=== PATIENT | female | born 1935 | race Caucasian/White ===

== ENCOUNTER → 2017-09-02 | Outpatient (REF) | payer MEDICARE, OTHER ==
[~2017-09-02] MED LIST: ATIV1TAB10 PO; BYST5TAB2 PO; CHOLMIS5 XX; COLA100C5 PO; CYMB60CA3 PO; DOCU100T8 PO; DULO30CA PO; Desyrel PO; FERR1TAB8 PO; FERR29TA PO; FLAG500T PO; FLUO20CA8 PO; GABA-282 PO; HYDR-3713 PO; HYDR-643 PO; INVE156I IM; LYRI75CA PO; MACR100C43 PO; METO1TAB32 PO; MOM30SS PO; MSIR PO; MULTCAP11 PO; NEUR100C PO; PERCOCET PO; PRAV40TA2 PO; PROZ10CA7 PO; PROZ20CA11 PO; SENO8.6T10 PO; STOO100C PO; TRAZ25TA PO; TRAZADONE PO; TYLE325T5 PO; XANA0.5T PO
== END ==
LOC: M LAB REF 16:24
PROVIDERS: ATTEND Family Medicine
DX: N39.0 Urinary tract infection, site not specified (principal); C56.9 Malignant neoplasm of unspecified ovary; C78.7 Secondary malignant neoplasm of liver and intrahepatic bile duct; F32.9 Major depressive disorder, single episode, unspecified; F41.9 Anxiety disorder, unspecified

== ENCOUNTER → 2017-10-08 | Outpatient (REF) | payer MEDICARE ==
[~2017-10-08] MED LIST changes: +GABA-283 PO; +NYST50SS SS; +OMEP20CA3 PO; +PATIENT COMMENT; +RANI150C PO; +RANI150T PO; +TRAM50TA2 PO; +TRAZ50TA11 PO
== END ==
LOC: M LAB REF 16:26
PROVIDERS: ATTEND Nurse Practitioner Family
DX: C56.9 Malignant neoplasm of unspecified ovary (principal)

== ENCOUNTER 2017-10-11 15:24 | Inpatient (IN) | payer MEDICARE ==
[2017-10-11] MEDS: NS 1,000 ML IV ×2 (15:48→22:14)
[2017-10-11 16:13] LABS: BASO % 0.4 % (0.0-1.0); EOS # 0.1 10^3/uL (0.0-0.50); EOS % 1.6 % (0.0-3.0); HEMATOCRIT 30.9 % (36.0-47.0); IMMATURE GRANULOCYTE % 0.8 % (0-0); LYMPH # 0.9 10^3/uL (1.5-4.5); LYMPH % 17.7 % (24.0-44.0); MEAN CORPUSCULAR HEMOGLOBIN 31.8 pg (27.0-33.0); MEAN CORPUSCULAR HGB CONC 32.4 g/dl (32.0-36.5); MEAN CORPUSCULAR VOLUME 98.4 fl (80.0-96.0); MONO # 0.6 10^3/uL (0.0-0.8); MONO % 10.7 % (0.0-5.0); NEUTROPHILS # 3.5 10^3/uL (1.8-7.7); NEUTROPHILS % 68.8 % (36.0-66.0); PLATELET COUNT, AUTOMATED 141 10^3/uL (150-450); RED BLOOD COUNT 3.14 10^6/uL (4.00-5.40); RED CELL DISTRIBUTION WIDTH 12.5 % (11.5-14.5); WHITE BLOOD COUNT 5.1 10^3/uL (4.0-10.0)
[2017-10-11 16:28] LABS: AMMONIA < 10 uMOL/L (<32)
[2017-10-11 16:34] LABS: ALBUMIN 3.7 GM/DL (3.2-5.2); ALBUMIN/GLOBULIN RATIO 0.97 (1.00-1.93); ALKALINE PHOSPHATASE 105 U/L (45-117); ALT/SGPT 31 U/L (12-78); ANION GAP 8 MEQ/L (8-16); AST/SGOT 51 U/L (7-37); BILIRUBIN,DIRECT 0.1 MG/DL (0.0-0.2); BILIRUBIN,TOTAL 0.4 MG/DL (0.2-1.0); BLOOD UREA NITROGEN 31 MG/DL (7-18); CALCIUM LEVEL 8.8 MG/DL (8.8-10.2); CARBON DIOXIDE LEVEL 27 MEQ/L (21-32); CHLORIDE LEVEL 104 MEQ/L (98-107); CPK CREATINE PHOSPHOKINASE 62 U/L (26-192); CREATININE FOR GFR 1.24 MG/DL (0.55-1.02); ETHYL ALCOHOL (ETHANOL) < 0.003 % (0.000-0.010); GLOMERULAR FILTRATION RATE 44.4 (>39); GLUCOSE, FASTING 106 MG/DL (83-110); POTASSIUM SERUM 4.3 MEQ/L (3.5-5.1); SODIUM LEVEL 139 MEQ/L (136-145); TOTAL PROTEIN 7.5 GM/DL (6.4-8.2); TROPONIN I < 0.02 NG/ML (< 0.10)
[2017-10-11 16:55] LABS: MB/CK RELATIVE INDEX 1.61 (< OR =4)
[2017-10-11 17:15] LABS: KETONE, URINE AUTO RFX TRACE mg/dL (NEGATIVE); MUCUS, URINE RFX SMALL (NEGATIVE); NITRITE, URINE AUTO RFX NEGATIVE (NEGATIVE); RBC, URINE AUTO RFX 12 /HPF (0-3); SPECIFIC GRAVITY UR AUTO RFX 1.023 (1.002-1.035); SQUAM EPITHELIAL CELL UR AURFX 0 /HPF (0-6)
[2017-10-11 17:16] LABS: LEUKOCYTE ESTERASE UR AUTO RFX 2+ (NEGATIVE); WBC, URINE AUTO RFX 175 /HPF (0-3)
[2017-10-11] MEDS: CEFTRIAXONE SOD 1 GM in APPROPRIATE DILUENT 1 EA IV (18:03)
[2017-10-11] MEDS ORDERED: BISACODYL 5 MG TAB PO (18:30)
[2017-10-11] MEDS ORDERED: ONDANSETRON 4MG/2ML VIAL (J2405) IV (18:30)
[2017-10-11] MEDS: traZODone 50 MG TAB PO (22:15)
[2017-10-11] MEDS: METOPROLOL SUCC *XL* 25MG TAB (TopROL *XL*) PO (22:15)
[2017-10-11] MEDS: SENOKOT S TAB PO (22:16)
[2017-10-11] MEDS: FAMOTIDINE 20 MG TAB PO (22:16)
[2017-10-11] MEDS: LORazepam 0.5 MG TAB PO (22:16)
[2017-10-12 06:23] LABS: BASO % 0.2 % (0.0-1.0); EOS # 0.1 10^3/uL (0.0-0.50); EOS % 1.5 % (0.0-3.0); HEMATOCRIT 24.8 % (36.0-47.0); HEMOGLOBIN 8.2 g/dl (12.0-16.0); IMMATURE GRANULOCYTE % 0.7 % (0-0); LYMPH # 0.9 10^3/uL (1.5-4.5); LYMPH % 22.7 % (24.0-44.0); MEAN CORPUSCULAR HEMOGLOBIN 32.5 pg (27.0-33.0); MEAN CORPUSCULAR HGB CONC 33.1 g/dl (32.0-36.5); MEAN CORPUSCULAR VOLUME 98.4 fl (80.0-96.0); MONO # 0.5 10^3/uL (0.0-0.8); NEUTROPHILS # 2.6 10^3/uL (1.8-7.7); NEUTROPHILS % 62.9 % (36.0-66.0); PLATELET COUNT, AUTOMATED 101 10^3/uL (150-450); RED BLOOD COUNT 2.52 10^6/uL (4.00-5.40); RED CELL DISTRIBUTION WIDTH 12.6 % (11.5-14.5); WHITE BLOOD COUNT 4.1 10^3/uL (4.0-10.0)
[2017-10-12 06:57] LABS: ANION GAP 9 MEQ/L (8-16); BLOOD UREA NITROGEN 25 MG/DL (7-18); CARBON DIOXIDE LEVEL 24 MEQ/L (21-32); CHLORIDE LEVEL 109 MEQ/L (98-107); CREATININE FOR GFR 0.93 MG/DL (0.55-1.02); GLOMERULAR FILTRATION RATE > 60.0 (>39); GLUCOSE, FASTING 95 MG/DL (83-110); POTASSIUM SERUM 4.2 MEQ/L (3.5-5.1); SODIUM LEVEL 142 MEQ/L (136-145)
[2017-10-12] MEDS: NS 1,000 ML IV ×2 (08:20→20:05)
[2017-10-12] MEDS: ENOXAPARIN 30 MG/0.3 ML SYR (J1650) SC (09:00)
[2017-10-12] MEDS: METOPROLOL SUCC *XL* 25MG TAB (TopROL *XL*) PO ×2 (09:00→20:04)
[2017-10-12] MEDS: SENOKOT S TAB PO ×2 (09:00→20:04)
[2017-10-12] MEDS: LORazepam 0.5 MG TAB PO ×2 (09:00→20:04)
[2017-10-12] MEDS: GABAPENTIN 300 MG CAP PO (09:00)
[2017-10-12] MEDS: OMEPRAZOLE 20 MG CAP PO (09:00)
[2017-10-12] MEDS: FAMOTIDINE 20 MG TAB PO ×2 (09:00→20:04)
[2017-10-12] MEDS: DULoxetine 30 MG CAP (CYMBALTA) PO (09:00)
[2017-10-12] MEDS: CEFTRIAXONE SOD 1 GM in APPROPRIATE DILUENT 1 EA IV (18:00)
[2017-10-12] MEDS: traZODone 50 MG TAB PO (20:04)
[2017-10-13 07:08] LABS: BASO % 0.3 % (0.0-1.0); EOS % 1.2 % (0.0-3.0); HEMATOCRIT 25.6 % (36.0-47.0); HEMOGLOBIN 8.4 g/dl (12.0-16.0); IMMATURE GRANULOCYTE % 0.6 % (0-0); LYMPH # 0.6 10^3/uL (1.5-4.5); LYMPH % 17.6 % (24.0-44.0); MEAN CORPUSCULAR HEMOGLOBIN 32.1 pg (27.0-33.0); MEAN CORPUSCULAR HGB CONC 32.8 g/dl (32.0-36.5); MEAN CORPUSCULAR VOLUME 97.7 fl (80.0-96.0); MONO # 0.4 10^3/uL (0.0-0.8); MONO % 12.6 % (0.0-5.0); NEUTROPHILS # 2.3 10^3/uL (1.8-7.7); NEUTROPHILS % 67.7 % (36.0-66.0); RED BLOOD COUNT 2.62 10^6/uL (4.00-5.40); RED CELL DISTRIBUTION WIDTH 12.6 % (11.5-14.5); WHITE BLOOD COUNT 3.4 10^3/uL (4.0-10.0)
[2017-10-13 07:29] LABS: IMMATURE PLATELET FRACTION % 5.3 % (0.0-9.6); PLATELET COUNT, AUTOMATED 88 10^3/uL (150-450)
[2017-10-13 07:30] LABS: ANION GAP 8 MEQ/L (8-16); BLOOD UREA NITROGEN 15 MG/DL (7-18); CALCIUM LEVEL 8.3 MG/DL (8.8-10.2); CARBON DIOXIDE LEVEL 24 MEQ/L (21-32); CHLORIDE LEVEL 112 MEQ/L (98-107); CREATININE FOR GFR 0.86 MG/DL (0.55-1.02); GLOMERULAR FILTRATION RATE > 60.0 (>39); GLUCOSE, FASTING 100 MG/DL (83-110); POTASSIUM SERUM 3.7 MEQ/L (3.5-5.1); SODIUM LEVEL 144 MEQ/L (136-145)
[2017-10-13] MEDS: FAMOTIDINE 20 MG TAB PO ×2 (08:50→19:27)
[2017-10-13] MEDS: OMEPRAZOLE 20 MG CAP PO (08:50)
[2017-10-13] MEDS: GABAPENTIN 300 MG CAP PO (08:50)
[2017-10-13] MEDS: DULoxetine 30 MG CAP (CYMBALTA) PO (08:50)
[2017-10-13] MEDS: SENOKOT S TAB PO ×2 (08:50→19:27)
[2017-10-13] MEDS: LORazepam 0.5 MG TAB PO ×2 (08:51→19:27)
[2017-10-13] MEDS: METOPROLOL SUCC *XL* 25MG TAB (TopROL *XL*) PO ×2 (08:51→19:27)
[2017-10-13] MEDS: ENOXAPARIN 30 MG/0.3 ML SYR (J1650) SC (08:52)
[2017-10-13] MEDS: NS 1,000 ML IV ×2 (15:40→19:28)
[2017-10-13] MEDS: CEFTRIAXONE SOD 1 GM in APPROPRIATE DILUENT 1 EA IV (17:24)
[2017-10-13] MEDS: traZODone 50 MG TAB PO (19:27)
[2017-10-14 07:00] LABS: BASO % 0.3 % (0.0-1.0); EOS # 0.1 10^3/uL (0.0-0.50); EOS % 1.4 % (0.0-3.0); HEMATOCRIT 24.2 % (36.0-47.0); HEMOGLOBIN 7.9 g/dl (12.0-16.0); IMMATURE GRANULOCYTE % 0.8 % (0-0); LYMPH % 28.3 % (24.0-44.0); MEAN CORPUSCULAR HGB CONC 32.6 g/dl (32.0-36.5); MONO # 0.5 10^3/uL (0.0-0.8); NEUTROPHILS % 56.2 % (36.0-66.0); RED BLOOD COUNT 2.47 10^6/uL (4.00-5.40); RED CELL DISTRIBUTION WIDTH 12.8 % (11.5-14.5); WHITE BLOOD COUNT 3.5 10^3/uL (4.0-10.0)
[2017-10-14 07:08] LABS: PLATELET COUNT, AUTOMATED 89 10^3/uL (150-450)
[2017-10-14 07:09] LABS: ADD MANUAL DIFFER NO; DIFF SLIDE NUMBER 46
[2017-10-14 07:16] LABS: ANION GAP 6 MEQ/L (8-16); BLOOD UREA NITROGEN 8 MG/DL (7-18); CALCIUM LEVEL 7.7 MG/DL (8.8-10.2); CARBON DIOXIDE LEVEL 25 MEQ/L (21-32); CHLORIDE LEVEL 114 MEQ/L (98-107); CREATININE FOR GFR 0.84 MG/DL (0.55-1.02); GLOMERULAR FILTRATION RATE > 60.0 (>39); GLUCOSE, FASTING 88 MG/DL (83-110); POTASSIUM SERUM 3.4 MEQ/L (3.5-5.1); SODIUM LEVEL 145 MEQ/L (136-145)
[2017-10-14] MEDS: SENOKOT S TAB PO ×2 (09:00→21:32)
[2017-10-14] MEDS: OMEPRAZOLE 20 MG CAP PO (09:07)
[2017-10-14] MEDS: DULoxetine 30 MG CAP (CYMBALTA) PO (09:07)
[2017-10-14] MEDS: FAMOTIDINE 20 MG TAB PO ×2 (09:07→21:32)
[2017-10-14] MEDS: LORazepam 0.5 MG TAB PO ×2 (09:07→21:32)
[2017-10-14] MEDS: METOPROLOL SUCC *XL* 25MG TAB (TopROL *XL*) PO ×2 (09:07→21:32)
[2017-10-14] MEDS: GABAPENTIN 300 MG CAP PO (09:07)
[2017-10-14] MEDS: ENOXAPARIN 30 MG/0.3 ML SYR (J1650) SC (09:08)
[2017-10-14] MEDS: NS 1,000 ML IV (10:33)
[2017-10-14] MEDS: CEFTRIAXONE SOD 1 GM in APPROPRIATE DILUENT 1 EA IV (17:14)
[2017-10-14] MEDS: traZODone 50 MG TAB PO (21:31)
[2017-10-15] MEDS: NS 1,000 ML IV (03:00)
[2017-10-15 06:49] LABS: BASO % 0.3 % (0.0-1.0); EOS % 1.2 % (0.0-3.0); HEMATOCRIT 23.7 % (36.0-47.0); HEMOGLOBIN 7.8 g/dl (12.0-16.0); IMMATURE GRANULOCYTE % 0.9 % (0-0); LYMPH # 0.7 10^3/uL (1.5-4.5); LYMPH % 20.4 % (24.0-44.0); MEAN CORPUSCULAR HEMOGLOBIN 31.7 pg (27.0-33.0); MEAN CORPUSCULAR HGB CONC 32.9 g/dl (32.0-36.5); MEAN CORPUSCULAR VOLUME 96.3 fl (80.0-96.0); MONO # 0.4 10^3/uL (0.0-0.8); MONO % 11.1 % (0.0-5.0); NEUTROPHILS # 2.3 10^3/uL (1.8-7.7); NEUTROPHILS % 66.1 % (36.0-66.0); RED BLOOD COUNT 2.46 10^6/uL (4.00-5.40); RED CELL DISTRIBUTION WIDTH 12.8 % (11.5-14.5); WHITE BLOOD COUNT 3.4 10^3/uL (4.0-10.0)
[2017-10-15 06:53] LABS: PLATELET COUNT, AUTOMATED 84 10^3/uL (150-450)
[2017-10-15 06:54] LABS: IMMATURE PLATELET FRACTION % 7.6 % (0.0-9.6)
[2017-10-15 06:55] LABS: PLATELET F 78
[2017-10-15 07:10] LABS: ANION GAP 9 MEQ/L (8-16); BLOOD UREA NITROGEN 7 MG/DL (7-18); CALCIUM LEVEL 7.4 MG/DL (8.8-10.2); CARBON DIOXIDE LEVEL 23 MEQ/L (21-32); CHLORIDE LEVEL 114 MEQ/L (98-107); CREATININE FOR GFR 0.81 MG/DL (0.55-1.02); GLOMERULAR FILTRATION RATE > 60.0 (>39); GLUCOSE, FASTING 94 MG/DL (83-110); SODIUM LEVEL 146 MEQ/L (136-145)
[2017-10-15] MEDS: METOPROLOL SUCC *XL* 25MG TAB (TopROL *XL*) PO ×2 (09:13→19:52)
[2017-10-15] MEDS: GABAPENTIN 300 MG CAP PO (09:13)
[2017-10-15] MEDS: LORazepam 0.5 MG TAB PO ×2 (09:13→19:53)
[2017-10-15] MEDS: OMEPRAZOLE 20 MG CAP PO (09:13)
[2017-10-15] MEDS: ENOXAPARIN 30 MG/0.3 ML SYR (J1650) SC (09:13)
[2017-10-15] MEDS: FAMOTIDINE 20 MG TAB PO ×2 (09:13→19:52)
[2017-10-15] MEDS: SENOKOT S TAB PO (09:14)
[2017-10-15] MEDS: DULoxetine 30 MG CAP (CYMBALTA) PO (09:14)
[2017-10-15] MEDS ORDERED: LOPERAMIDE 2 MG CAP PO (10:00)
[2017-10-15 17:09] LABS: AMORPHOUS SEDIMENT RFX SMALL (NEGATIVE); KETONE, URINE AUTO RFX TRACE mg/dL (NEGATIVE); LEUKOCYTE ESTERASE UR AUTO RFX TRACE (NEGATIVE); MUCUS, URINE RFX SMALL (NEGATIVE); NITRITE, URINE AUTO RFX NEGATIVE (NEGATIVE); RBC, URINE AUTO RFX 2 /HPF (0-3); SQUAM EPITHELIAL CELL UR AURFX 0 /HPF (0-6); WBC, URINE AUTO RFX 3 /HPF (0-3)
[2017-10-15] MEDS: traZODone 50 MG TAB PO (19:53)
[2017-10-16 06:40] LABS: BASO % 0.4 % (0.0-1.0); EOS # 0.1 10^3/uL (0.0-0.50); EOS % 1.1 % (0.0-3.0); HEMATOCRIT 23.3 % (36.0-47.0); HEMOGLOBIN 7.9 g/dl (12.0-16.0); IMMATURE GRANULOCYTE % 0.6 % (0-0); LYMPH # 0.8 10^3/uL (1.5-4.5); LYMPH % 17.2 % (24.0-44.0); MEAN CORPUSCULAR HEMOGLOBIN 32.2 pg (27.0-33.0); MEAN CORPUSCULAR HGB CONC 33.9 g/dl (32.0-36.5); MEAN CORPUSCULAR VOLUME 95.1 fl (80.0-96.0); MONO # 0.5 10^3/uL (0.0-0.8); MONO % 10.9 % (0.0-5.0); NEUTROPHILS # 3.3 10^3/uL (1.8-7.7); NEUTROPHILS % 69.8 % (36.0-66.0); RED BLOOD COUNT 2.45 10^6/uL (4.00-5.40); RED CELL DISTRIBUTION WIDTH 13.1 % (11.5-14.5); WHITE BLOOD COUNT 4.7 10^3/uL (4.0-10.0)
[2017-10-16 06:42] LABS: IMMATURE PLATELET FRACTION % 5.1 % (0.0-9.6); PLATELET COUNT, AUTOMATED 85 10^3/uL (150-450)
[2017-10-16] MEDS: KCL 40MEQ in NS 1000ML 1,000 ML IV ×2 (06:52→16:38)
[2017-10-16] MEDS: POTASSIUM CHLORIDE 10 MEQ SR TABLET PO (06:52)
[2017-10-16 06:55] LABS: ANION GAP 8 MEQ/L (8-16); BLOOD UREA NITROGEN 7 MG/DL (7-18); CALCIUM LEVEL 7.9 MG/DL (8.8-10.2); CARBON DIOXIDE LEVEL 25 MEQ/L (21-32); CHLORIDE LEVEL 111 MEQ/L (98-107); CREATININE FOR GFR 0.84 MG/DL (0.55-1.02); GLOMERULAR FILTRATION RATE > 60.0 (>39); GLUCOSE, FASTING 100 MG/DL (83-110); MAGNESIUM LEVEL 1.6 MG/DL (1.8-2.4); POTASSIUM SERUM 2.9 MEQ/L (3.5-5.1); SODIUM LEVEL 144 MEQ/L (136-145)
[2017-10-16] MEDS: GABAPENTIN 300 MG CAP PO (08:53)
[2017-10-16] MEDS: METOPROLOL SUCC *XL* 25MG TAB (TopROL *XL*) PO ×2 (08:53→19:57)
[2017-10-16] MEDS: LORazepam 0.5 MG TAB PO ×2 (08:53→19:57)
[2017-10-16] MEDS: DULoxetine 30 MG CAP (CYMBALTA) PO (08:53)
[2017-10-16] MEDS: OMEPRAZOLE 20 MG CAP PO (08:53)
[2017-10-16] MEDS: FAMOTIDINE 20 MG TAB PO ×2 (08:53→19:58)
[2017-10-16] MEDS: ENOXAPARIN 30 MG/0.3 ML SYR (J1650) SC (08:54)
[2017-10-16 16:52] LABS: POTASSIUM SERUM 4.7 MEQ/L (3.5-5.1)
[2017-10-16 16:52] LABS: MAGNESIUM LEVEL 1.5 MG/DL (1.8-2.4)
[2017-10-16] MEDS: MAG SULF 1GM/100ML (MAG RUN) 1 GM in APPROPRIATE DILUENT 1 EA IV ×2 (18:43→19:57)
[2017-10-16] MEDS: traZODone 50 MG TAB PO (19:58)
[2017-10-16 20:48] LABS: MAGNESIUM LEVEL 2.4 MG/DL (1.8-2.4)
[2017-10-17 06:22] LABS: BASO % 0.2 % (0.0-1.0); EOS # 0.1 10^3/uL (0.0-0.50); EOS % 1.2 % (0.0-3.0); HEMATOCRIT 22.7 % (36.0-47.0); HEMOGLOBIN 7.4 g/dl (12.0-16.0); IMMATURE GRANULOCYTE % 0.7 % (0-0); LYMPH # 0.8 10^3/uL (1.5-4.5); LYMPH % 18.2 % (24.0-44.0); MEAN CORPUSCULAR HEMOGLOBIN 31.9 pg (27.0-33.0); MEAN CORPUSCULAR HGB CONC 32.6 g/dl (32.0-36.5); MEAN CORPUSCULAR VOLUME 97.8 fl (80.0-96.0); MONO # 0.4 10^3/uL (0.0-0.8); MONO % 8.9 % (0.0-5.0); NEUTROPHILS % 70.8 % (36.0-66.0); RED BLOOD COUNT 2.32 10^6/uL (4.00-5.40); RED CELL DISTRIBUTION WIDTH 13.4 % (11.5-14.5); WHITE BLOOD COUNT 4.2 10^3/uL (4.0-10.0)
[2017-10-17 06:29] LABS: PLATELET COUNT, AUTOMATED 82 10^3/uL (150-450)
[2017-10-17 06:49] LABS: ANION GAP 7 MEQ/L (8-16); BLOOD UREA NITROGEN 7 MG/DL (7-18); CALCIUM LEVEL 7.6 MG/DL (8.8-10.2); CARBON DIOXIDE LEVEL 24 MEQ/L (21-32); CHLORIDE LEVEL 117 MEQ/L (98-107); GLOMERULAR FILTRATION RATE > 60.0 (>39); GLUCOSE, FASTING 104 MG/DL (83-110); MAGNESIUM LEVEL 2.1 MG/DL (1.8-2.4); SODIUM LEVEL 148 MEQ/L (136-145)
[2017-10-17] MEDS: NS 0.45% 1,000 ML IV (07:45)
[2017-10-17] MEDS: GABAPENTIN 300 MG CAP PO (09:00)
[2017-10-17] MEDS: OMEPRAZOLE 20 MG CAP PO (09:00)
[2017-10-17] MEDS: ENOXAPARIN 30 MG/0.3 ML SYR (J1650) SC (09:00)
[2017-10-17] MEDS: DULoxetine 30 MG CAP (CYMBALTA) PO (09:00)
[2017-10-17] MEDS: METOPROLOL SUCC *XL* 25MG TAB (TopROL *XL*) PO ×2 (09:00→22:36)
[2017-10-17] MEDS: FAMOTIDINE 20 MG TAB PO ×2 (09:00→22:36)
[2017-10-17] MEDS: LORazepam 0.5 MG TAB PO ×2 (09:00→22:36)
[2017-10-17 09:13] LABS: FERRITIN 730 NG/ML (8-252); IRON (FE) 37 UG/DL (50-170); PERCENT SATURATION 27.6 % (13.2-45.0); TOTAL IRON BINDING CAPACITY 134 UG/DL (250-450)
[2017-10-17 09:22] LABS: RETICULOCYTE # 29.2 10^9/L (17-77); RETICULOCYTE % 1.3 % (0.5-1.5)
[2017-10-17 09:31] LABS: REASON FOR REVIEW COMPREHENSIVE REVIEW; SLIDE REVIEW Report; SOURCE PERIPHERAL SMEAR
[2017-10-17] MEDS: diphenhydrAMINE 25 MG CAP PO (12:30)
[2017-10-17] MEDS: ACETAMINOPHEN TAB 650MG DOSE (2X325MG) PO (12:30)
[2017-10-17 16:41] LABS: IMMEDIATE SPIN CROSSMATCH 1 2
[2017-10-17] MEDS: traZODone 50 MG TAB PO (22:36)
[2017-10-18 06:34] LABS: BASO % 0.4 % (0.0-1.0); EOS # 0.1 10^3/uL (0.0-0.50); EOS % 1.5 % (0.0-3.0); IMMATURE GRANULOCYTE % 0.8 % (0-0); LYMPH % 18.6 % (24.0-44.0); MEAN CORPUSCULAR HEMOGLOBIN 30.7 pg (27.0-33.0); MEAN CORPUSCULAR HGB CONC 33.8 g/dl (32.0-36.5); MEAN CORPUSCULAR VOLUME 90.9 fl (80.0-96.0); MONO # 0.5 10^3/uL (0.0-0.8); MONO % 9.5 % (0.0-5.0); NEUTROPHILS # 3.7 10^3/uL (1.8-7.7); NEUTROPHILS % 69.2 % (36.0-66.0); RED BLOOD COUNT 3.52 10^6/uL (4.00-5.40); RED CELL DISTRIBUTION WIDTH 17.1 % (11.5-14.5); WHITE BLOOD COUNT 5.3 10^3/uL (4.0-10.0)
[2017-10-18 06:36] LABS: PLATELET COUNT, AUTOMATED 87 10^3/uL (150-450)
[2017-10-18 06:37] LABS: HEMOGLOBIN 10.8 g/dl (12.0-16.0); IMMATURE PLATELET FRACTION % 9.9 % (0.0-9.6)
[2017-10-18 06:52] LABS: ANION GAP 8 MEQ/L (8-16); BLOOD UREA NITROGEN 9 MG/DL (7-18); CALCIUM LEVEL 8.3 MG/DL (8.8-10.2); CARBON DIOXIDE LEVEL 26 MEQ/L (21-32); CHLORIDE LEVEL 112 MEQ/L (98-107); CREATININE FOR GFR 0.86 MG/DL (0.55-1.02); GLOMERULAR FILTRATION RATE > 60.0 (>39); GLUCOSE, FASTING 91 MG/DL (83-110); MAGNESIUM LEVEL 1.8 MG/DL (1.8-2.4); POTASSIUM SERUM 3.9 MEQ/L (3.5-5.1); SODIUM LEVEL 146 MEQ/L (136-145)
[2017-10-18] MEDS: ENOXAPARIN 30 MG/0.3 ML SYR (J1650) SC (09:00)
[2017-10-18] MEDS: METOPROLOL SUCC *XL* 25MG TAB (TopROL *XL*) PO ×2 (09:27→20:45)
[2017-10-18] MEDS: DULoxetine 30 MG CAP (CYMBALTA) PO (09:27)
[2017-10-18] MEDS: OMEPRAZOLE 20 MG CAP PO (09:27)
[2017-10-18] MEDS: LORazepam 0.5 MG TAB PO ×2 (09:27→20:45)
[2017-10-18] MEDS: FAMOTIDINE 20 MG TAB PO ×2 (09:27→20:45)
[2017-10-18] MEDS: GABAPENTIN 300 MG CAP PO (09:27)
[2017-10-18] MEDS: traZODone 50 MG TAB PO (20:45)
[2017-10-19] MEDS: FAMOTIDINE 20 MG TAB PO ×2 (08:59→20:50)
[2017-10-19] MEDS: LORazepam 0.5 MG TAB PO ×2 (08:59→20:51)
[2017-10-19] MEDS: METOPROLOL SUCC *XL* 25MG TAB (TopROL *XL*) PO ×2 (09:00→20:51)
[2017-10-19] MEDS: ENOXAPARIN 30 MG/0.3 ML SYR (J1650) SC ×2 (09:00→09:01)
[2017-10-19] MEDS: GABAPENTIN 300 MG CAP PO (09:00)
[2017-10-19] MEDS: OMEPRAZOLE 20 MG CAP PO (09:00)
[2017-10-19] MEDS: D5W 1,000 ML IV ×2 (09:00→18:35)
[2017-10-19] MEDS: MAG SULF 1GM/100ML (MAG RUN) 1 GM in APPROPRIATE DILUENT 1 EA IV (09:00)
[2017-10-19] MEDS: DULoxetine 30 MG CAP (CYMBALTA) PO (09:00)
[2017-10-19 11:57] LABS: HEMOGLOBIN 11.6 g/dl (12.0-16.0); MEAN CORPUSCULAR HEMOGLOBIN 30.1 pg (27.0-33.0); MEAN CORPUSCULAR HGB CONC 33.1 g/dl (32.0-36.5); MEAN CORPUSCULAR VOLUME 90.9 fl (80.0-96.0); RED BLOOD COUNT 3.85 10^6/uL (4.00-5.40); RED CELL DISTRIBUTION WIDTH 16.2 % (11.5-14.5); WHITE BLOOD COUNT 5.1 10^3/uL (4.0-10.0)
[2017-10-19 12:10] LABS: PLATELET COUNT, AUTOMATED 96 10^3/uL (150-450)
[2017-10-19 12:11] LABS: IMMATURE PLATELET FRACTION % 7.4 % (0.0-9.6)
[2017-10-19 12:17] LABS: ANION GAP 9 MEQ/L (8-16); BLOOD UREA NITROGEN 10 MG/DL (7-18); CALCIUM LEVEL 8.3 MG/DL (8.8-10.2); CARBON DIOXIDE LEVEL 28 MEQ/L (21-32); CHLORIDE LEVEL 107 MEQ/L (98-107); CREATININE FOR GFR 0.93 MG/DL (0.55-1.02); GLOMERULAR FILTRATION RATE > 60.0 (>39); GLUCOSE, FASTING 115 MG/DL (83-110); POTASSIUM SERUM 3.5 MEQ/L (3.5-5.1); SODIUM LEVEL 144 MEQ/L (136-145)
[2017-10-19 18:41] LABS: ANION GAP 7 MEQ/L (8-16); BLOOD UREA NITROGEN 8 MG/DL (7-18); CARBON DIOXIDE LEVEL 29 MEQ/L (21-32); CHLORIDE LEVEL 107 MEQ/L (98-107); CREATININE FOR GFR 1.09 MG/DL (0.55-1.02); GLOMERULAR FILTRATION RATE 51.5 (>39); GLUCOSE, FASTING 126 MG/DL (83-110); POTASSIUM SERUM 3.4 MEQ/L (3.5-5.1); SODIUM LEVEL 143 MEQ/L (136-145)
[2017-10-19] MEDS: traZODone 50 MG TAB PO (20:51)
[2017-10-20 00:28] LABS: ANION GAP 5 MEQ/L (8-16); BLOOD UREA NITROGEN 11 MG/DL (7-18); CALCIUM LEVEL 8.5 MG/DL (8.8-10.2); CARBON DIOXIDE LEVEL 28 MEQ/L (21-32); CHLORIDE LEVEL 108 MEQ/L (98-107); CREATININE FOR GFR 1.03 MG/DL (0.55-1.02); GLUCOSE, FASTING 132 MG/DL (83-110); POTASSIUM SERUM 3.3 MEQ/L (3.5-5.1); SODIUM LEVEL 141 MEQ/L (136-145)
[2017-10-20] MEDS: POTASSIUM CHLORIDE 10 MEQ SR TABLET PO ×2 (01:01→09:18)
[2017-10-20 07:05] LABS: ANION GAP 6 MEQ/L (8-16); BLOOD UREA NITROGEN 8 MG/DL (7-18); CALCIUM LEVEL 8.6 MG/DL (8.8-10.2); CARBON DIOXIDE LEVEL 28 MEQ/L (21-32); CHLORIDE LEVEL 110 MEQ/L (98-107); CREATININE FOR GFR 0.94 MG/DL (0.55-1.02); GLOMERULAR FILTRATION RATE > 60.0 (>39); GLUCOSE, FASTING 106 MG/DL (83-110); POTASSIUM SERUM 3.9 MEQ/L (3.5-5.1); SODIUM LEVEL 144 MEQ/L (136-145)
[2017-10-20] MEDS: FAMOTIDINE 20 MG TAB PO ×2 (09:17→21:11)
[2017-10-20] MEDS: DULoxetine 30 MG CAP (CYMBALTA) PO (09:17)
[2017-10-20] MEDS: METOPROLOL SUCC *XL* 25MG TAB (TopROL *XL*) PO ×2 (09:18→21:12)
[2017-10-20] MEDS: OMEPRAZOLE 20 MG CAP PO (09:18)
[2017-10-20] MEDS: GABAPENTIN 300 MG CAP PO (09:18)
[2017-10-20] MEDS: LORazepam 0.5 MG TAB PO ×2 (09:18→21:11)
[2017-10-20] MEDS: NORCO, ANEXSIA 5/325MG TABLET (HYDROcodone/ACETAMINOPHEN) PO (17:48)
[2017-10-20] MEDS: traZODone 50 MG TAB PO (21:12)
[2017-10-21] MEDS: POTASSIUM CHLORIDE 10 MEQ SR TABLET PO (09:03)
[2017-10-21] MEDS: LORazepam 0.5 MG TAB PO ×2 (09:03→20:57)
[2017-10-21] MEDS: METOPROLOL SUCC *XL* 25MG TAB (TopROL *XL*) PO ×2 (09:05→20:57)
[2017-10-21] MEDS: FAMOTIDINE 20 MG TAB PO ×2 (09:05→20:57)
[2017-10-21] MEDS: GABAPENTIN 300 MG CAP PO (09:05)
[2017-10-21] MEDS: OMEPRAZOLE 20 MG CAP PO (09:06)
[2017-10-21] MEDS: DULoxetine 30 MG CAP (CYMBALTA) PO (09:06)
[2017-10-21] MEDS: NORCO, ANEXSIA 5/325MG TABLET (HYDROcodone/ACETAMINOPHEN) PO (15:58)
[2017-10-21] MEDS: traZODone 50 MG TAB PO (20:57)
[2017-10-22] MEDS: GABAPENTIN 300 MG CAP PO (09:02)
[2017-10-22] MEDS: FAMOTIDINE 20 MG TAB PO ×2 (09:02→21:08)
[2017-10-22] MEDS: DULoxetine 30 MG CAP (CYMBALTA) PO (09:02)
[2017-10-22] MEDS: OMEPRAZOLE 20 MG CAP PO (09:02)
[2017-10-22] MEDS: METOPROLOL SUCC *XL* 25MG TAB (TopROL *XL*) PO ×2 (09:02→21:08)
[2017-10-22] MEDS: POTASSIUM CHLORIDE 10 MEQ SR TABLET PO (09:02)
[2017-10-22] MEDS: LORazepam 0.5 MG TAB PO ×2 (09:02→21:08)
[2017-10-22] MEDS: NORCO, ANEXSIA 5/325MG TABLET (HYDROcodone/ACETAMINOPHEN) PO (09:05)
[2017-10-22] MEDS: traZODone 50 MG TAB PO (21:08)
[2017-10-23] MEDS: POTASSIUM CHLORIDE 10 MEQ SR TABLET PO (07:37)
[2017-10-23] MEDS: LORazepam 0.5 MG TAB PO (07:37)
[2017-10-23] MEDS: OMEPRAZOLE 20 MG CAP PO (07:37)
[2017-10-23] MEDS: GABAPENTIN 300 MG CAP PO (07:39)
[2017-10-23] MEDS: DULoxetine 30 MG CAP (CYMBALTA) PO (07:39)
[2017-10-23] MEDS: METOPROLOL SUCC *XL* 25MG TAB (TopROL *XL*) PO (07:39)
[2017-10-23] MEDS: FAMOTIDINE 20 MG TAB PO (07:39)
[2017-10-23] MEDS: NORCO, ANEXSIA 5/325MG TABLET (HYDROcodone/ACETAMINOPHEN) PO (07:39)
== END 2017-10-23 12:13 | disposition hospice, home (50) | DRG 689 ==
LOC: M ED 15:24 → M ED INP 18:52 → M MS5PR 20:24
PROC: 30233N1 Transfusion of Nonautologous Red Blood Cells into Peripheral Vein, Percutaneous Approach (ICD-10-PCS; principal; 2017-10-17)
DX: N39.0 Urinary tract infection, site not specified (principal); G93.41 Metabolic encephalopathy; C56.9 Malignant neoplasm of unspecified ovary; C78.7 Secondary malignant neoplasm of liver and intrahepatic bile duct; C78.89 Secondary malignant neoplasm of other digestive organs; C79.89 Secondary malignant neoplasm of other specified sites; E87.0 Hyperosmolality and hypernatremia; Z66 Do not resuscitate; F41.9 Anxiety disorder, unspecified; F03.90 Unspecified dementia, unspecified severity, without behavioral disturbance, psychotic disturbance, mood disturbance, and anxiety; E87.8 Other disorders of electrolyte and fluid balance, not elsewhere classified; D63.0 Anemia in neoplastic disease; B95.4 Other streptococcus as the cause of diseases classified elsewhere; I10 Essential (primary) hypertension; E78.5 Hyperlipidemia, unspecified; Z87.442 Personal history of urinary calculi; Z90.710 Acquired absence of both cervix and uterus; Z90.722 Acquired absence of ovaries, bilateral; Z98.49 Cataract extraction status, unspecified eye; Z79.899 Other long term (current) drug therapy